=== PATIENT | female | born 1975 | race American Indian/Alaskan Native ===

== ENCOUNTER 2024-10-21 22:40 | Emergency (ER) | payer OTHER ==
[2024-10-21] MEDS ORDERED: LIDOCAINE/RACEPINEP/TETRACAINE 3 ML SYR TOP ONE (22:45)
[2024-10-21] MEDS ORDERED: LIDOCAINE HCL 4% 50 ML BTL TOP ONE (23:00)
[2024-10-22] MEDS ORDERED: LORazepam 2 MG/ML VIAL ONE (00:04)
[2024-10-22] MEDS ORDERED: TRANEXAMIC ACID IN NACL,ISO-OS 200 ML IV ONE (00:11)
[2024-10-22] MEDS ORDERED: TRANEXAMIC ACID IN NACL,ISO-OS 1,000 MG/100 ML PIGGYBACK IV ONE (00:15)
[2024-10-22] MEDS ORDERED: LORazepam 2 MG/ML VIAL IV ONE (00:15)
[2024-10-22] MEDS ORDERED: HYDROCODONE/ACETA 5/325 TAB PO ONE (01:15)
[2024-10-22] MEDS ORDERED: HYDROCODONE BIT/ACETAMINOPHEN 5/325 MG 1 TAB HOME.PACK PO ONE (02:00)
== END 2024-10-22 02:00 | disposition home or self-care (01) ==
LOC: ED 22:40
DX: S81.811A Laceration without foreign body, right lower leg, initial encounter (principal); W01.0XXA Fall on same level from slipping, tripping and stumbling without subsequent striking against object, initial encounter; Y92.59 Other trade areas as the place of occurrence of the external cause; Z79.899 Other long term (current) drug therapy
CPT/HCPCS: 12034; 36415; 73560; 96374; 96375; 99283-25; A9270; G0480; J2060